=== PATIENT | female | born 1985 | race Caucasian/White ===

== ENCOUNTER 2017-03-05 09:07 | Emergency (ER) | payer OTHER ==
[2017-03-05 09:11] VITALS: BP 141/74; PULSE 85; RESP 20; TEMP 98.5
--- NOTE | 2017-03-05 09:24 | ED ---
Upper Extremity HPI - General Chief Complaint: Extremity Injury, Upper Stated Complaint: Fall Time Seen by Provider: 03/05/17 09:12 Source: patient, RN notes reviewed Mode of arrival: ambulatory Limitations: no limitations - History of Present Illness Initial Comments: 31-year-old female presents emergency Department chief complaint of right hand pain, swelling. She states she had an injury on Thursday went to [facility] on Thursday and had x-rays which showed no acute fracture. She states she had increased swelling and some pain that continues. She states that she's had an Kevin bandage on it and she has not been elevating it. Patient states she's had some paresthesias but they come and go. Denies any weakness or any discoloration. Patient states she did not follow up with her primary care physician or orthopedics at this time. Place: home - Related Data Allergies Allergy/AdvReac Type Severity Reaction Status Date / Time No Known Allergies Allergy Verified 03/05/17 09:11 Review of Systems ROS Statement: Those systems with pertinent positive or pertinent negative responses have been documented in the HPI. ROS Other: All systems not noted in ROS Statement are negative. Past Medical History Past Medical History: No Reported History History of Any Multi-Drug Resistant Organisms: None Reported Past Surgical History: No Surgical Hx Reported Past Psychological History: No Psychological Hx Reported Smoking Status: Never smoker Past Alcohol Use History: None Reported Past Drug Use History: None Reported General Exam Limitations: no limitations General appearance: alert, in no apparent distress Respiratory exam: Present: normal lung sounds bilaterally. Absent: respiratory distress, wheezes, rales, rhonchi, stridor Cardiovascular Exam: Present: regular rate, normal rhythm, normal heart sounds. Absent: systolic murmur, diastolic murmur, rubs, gallop, clicks Extremities exam: Present: other (Right hand there is moderate swelling radial pulses equal bilaterally there is good capillary refill less than 2 seconds patient has full range of motion mild tenderness of the proximal hand) Neurological exam: Present: alert, reflexes normal. Absent: motor sensory deficit Skin exam: Present: warm, dry, intact, normal color. Absent: rash Course Vital Signs 03/05/17 09:09 Temperature 98.5 F Pulse Rate 85 Respiratory 20 Rate Blood Pressure 141/74 O2 Sat by Pulse 99 Oximetry Medical Decision Making - Medical Decision Making 31-year-old female presented for right hand swelling. There is no acute fractures. Patient has a right hand, wrist sprain. Patient has increased swelling that she has been wearing an Kevin wrap tightly on around her wrist. She is advised to take this off, elevate and apply ice. Return parameters discussed. Patient has no evidence of compartment syndrome Disposition Clinical Impression: Swelling of right hand Disposition: HOME SELF-CARE Condition: Stable Instructions: Hand Sprain (ED) Additional Instructions: Please return to the Emergency Department if symptoms worsen or any other concerns. Time of Disposition: 09:43
--- NOTE | 2017-03-05 09:38 | XR ---
EXAMINATION TYPE: XR hand complete RT DATE OF EXAM: 03/05/2017 9:35 AM CLINICAL HISTORY: pain TECHNIQUE: Frontal, lateral and oblique images of the right hand are obtained. COMPARISON: None. FINDINGS: There is no acute fracture/dislocation evident. The joint spaces appear within normal limi ts. Soft tissue swelling overlies the dorsum of the hand. IMPRESSION: There is no acute fracture or dislocation ICD 10 NO FRACTURE, INITIAL EVALUATION
== END 2017-03-05 10:21 | disposition home or self-care (01) ==
LOC: EC 09:07
DX: S63.91XD Sprain of unspecified part of right wrist and hand, subsequent encounter (principal); S63.501D Unspecified sprain of right wrist, subsequent encounter; W19.XXXD Unspecified fall, subsequent encounter; Y92.009 Unspecified place in unspecified non-institutional (private) residence as the place of occurrence of the external cause
CPT/HCPCS: 99283

== ENCOUNTER → 2017-06-25 | Outpatient (CLI) | payer OTHER ==
[2017-06-25 11:07] LABS: Basophils # (A) 0.1 k/uL (0-0.2); Basophils % (A) 1 %; CHCM 31.2; Eosinophils # (A) 0.4 k/uL (0-0.7); Eosinophils % (A) 5 %; HCT 42.9 % (34.0-46.0); HDW 2.49; HGB 13.7 gm/dL (11.4-16.0); Hypochromasia Slight; Luc % (Auto) 2; Lymphocytes # (A) 1.9 k/uL (1.0-4.8); Lymphocytes % (A) 22 %; MCH 26.7 pg (25.0-35.0); MCHC 31.9 g/dL (31.0-37.0); MCV 83.7 fL (80.0-100.0); Mean Platelet Volume 8.5; Monocytes # (A) 0.4 k/uL (0-1.0); Monocytes % (A) 5 %; Neutrophils # (A) 5.7 k/uL (1.3-7.7); Neutrophils % (A) 66 %; RBC 5.13 m/uL (3.80-5.40); RDW 13.8 % (11.5-15.5); WBC 8.6 k/uL (3.8-10.6); WBC (Perox) 9.05
== END | disposition home or self-care (01) ==
LOC: LABPAT 10:46
PROVIDERS: ATTEND Obstetrics & Gynecology
DX: Z01.812 Encounter for preprocedural laboratory examination (principal)
CPT/HCPCS: 36415; 85025

== ENCOUNTER 2017-06-30 07:34 | Day surgery (SDC) | payer OTHER ==
[2017-06-23 12:38] VITALS: BMI 40.4
--- NOTE | 2017-06-26 06:22 | HP ---
HISTORY AND PHYSICAL For surgery on 06/30/2017. HISTORY OF PRESENT ILLNESS: The patient is a 31-year-old, 2, para 2-0-0-2 who presents to discuss tubal ligation. She expresses the desire for no further childbearing and is aware of the chcf and reversible methods but has requested permanent sterilization. PAST MEDICAL HISTORY: Significant only for asthma. PAST SURGICAL HISTORY: None. OBSTETRICAL HISTORY: 2, para 2-0-0-2 with 2 normal vaginal deliveries without complications. Current method of contraception is condoms. GYNECOLOGIC HISTORY: Gynecologic history is unremarkable with no history of any infections to include STDs. FAMILY HISTORY: Family history is noncontributory. SOCIAL HISTORY: The patient is single and a nonsmoker. She reports occasional alcohol and denies any other social concerns. CURRENT MEDICATIONS: None. ALLERGIES: CODEINE causes nausea. REVIEW OF SYSTEMS: Review of systems is confined to the history of present illness. PHYSICAL EXAMINATION: Vital signs are stable and the patient is afebrile. In general, this is a well- developed, moderately obese, white female, in no acute distress. Her heart has a regular rhythm and rate without murmur. Her lungs are clear to auscultation bilaterally in all parrish. Her abdomen is moderately obese, nondistended, has normoactive bowel sounds, is soft, nontender, and without any palpable masses, hepatosplenomegaly, or hernias. Her extremities are without any cyanosis, clubbing, or edema. They are nontender to palpation bilaterally. Bimanual pelvic examination demonstrates normal external genitalia and BUS with normal vaginal mucosa and cervix to palpation. There is no cervical motion tenderness. Uterus is approximately 5 weeks in size, mid plane, mobile, nontender, normal in shape. The adnexa are normal and nontender without mass bilaterally. ASSESSMENT AND PLAN: 1. Undesired fertility: We discussed multiple other alternatives that were both chcf and reversible but the patient has declined these in favor of proceeding with laparoscopic bilateral tubal occlusion using Filshie clips. The risks and complications of the procedure have been thoroughly discussed including risks of bleeding, bleeding requiring transfusion, infection, and injury to local structures, to specifically include the bowel, bladder, and ureters. She also understands the permanent nature of the procedure. She has expressed an understanding all the way around and agrees to proceed. We are scheduled for the procedure as outlined above on the morning of June 30, 2017. MMODL / IJN: [id number] /
[~2017-06-30 07:34] MED LIST: DEXAMETHASONE SOD PHOSPHATE 10 MG/ML 1 ML VIAL IV ONE; HYDROmorphone 1 MG/ML 1 ML SYRINGE IVP PRN; LACTATED RINGERS 1,000 ML IV SCH; LIDOCAINE 1% 20 ML VIAL (10MG/ML) FOR IV START INTRADERMA PRN; ONDANSETRON 4 MG/2 ML VIAL IVP ONE; Pre Op ABX Message 1 EACH MISC MISCELLANE ONE; SCOPOLAMINE 1.5MG/72HR PATCH TRANSDERM ONE
[2017-06-30] MEDS ORDERED: KETOROLAC 30 MG/ML 1 ML VIAL ONE (09:13)
[2017-06-30] MEDS ORDERED: PROPOFOL 10 MG/ML 20 ML VIAL IV ONE (09:13)
[2017-06-30] MEDS ORDERED: LIDOCAINE 1% INJ 10MG/ML (20 ML MDV) ONE (09:13)
[2017-06-30] MEDS ORDERED: fentaNYL (PF) 50 MCG/ML 2 ML AMP ONE (09:13)
[2017-06-30] MEDS ORDERED: NEOSTIGMINE 1 MG/ML 10 ML VIAL ONE (09:13)
[2017-06-30] MEDS ORDERED: HYDROmorphone (PF) 1 MG/ML ONE (09:13)
[2017-06-30] MEDS ORDERED: GLYCOPYRROLATE 0.2 MG/ML 2 ML VIAL ONE (09:13)
[2017-06-30] MEDS ORDERED: MIDAZOLAM 2 MG/2 ML VIAL ONE (09:13)
[2017-06-30] MEDS ORDERED: ROCURONIUM BROMIDE 10 MG/ML 10 ML VIAL IV ONE (09:13)
[2017-06-30] MEDS ORDERED: SUCCINYLCHOLINE CHLORIDE 100 MG/5 ML SYR IV ONE (09:13)
[2017-06-30] MEDS ORDERED: BUPIVACAINE (PF) 0.5% 30 ML VIAL SQ ONE (09:43)
[2017-06-30] MEDS ORDERED: diphenhydrAMINE 50 MG/ML 1 ML VIAL IVP PRN (09:46)
[2017-06-30] MEDS ORDERED: KETOROLAC 30 MG/ML 1 ML VIAL IVP PRN (09:46)
[2017-06-30] MEDS ORDERED: Acetaminophen-Codeine 300-30mg TAB PO PRN ×2 (09:46)
[2017-06-30] MEDS ORDERED: SIMETHICONE 80 MG CHEWABLE PO PRN (09:46)
[2017-06-30] MEDS ORDERED: ONDANSETRON 4 MG/2 ML VIAL IVP PRN (09:46)
[2017-06-30] MEDS ORDERED: IBUPROFEN 600 MG TAB PO PRN (09:46)
[2017-06-30] MEDS ORDERED: METOCLOPRAMIDE 5 MG/ML 2 ML VIAL IVP PRN (09:46)
--- NOTE | 2017-06-30 09:51 | P.OP ---
Date of Procedure: 06/30/17 Preoperative Diagnosis: #1. Multiparity #2. Undesired fertility Postoperative Diagnosis: Same Procedure(s) Performed: #1. Laparoscopic bilateral tubal occlusion with Filshie clips Implants: Anesthesia: LESLEEA Surgeon: Shola Mendez Estimated Blood Loss (ml): 5 IV fluids (ml): 500 Urine output (ml): 50 Pathology: none sent Condition: stable Disposition: PACU Indications for Procedure: Operative Findings: Preoperative pelvic examination demonstrated a roughly 4-5 week midplane mobile normal shaped uterus with normal adnexa bilaterally. Intraoperatively, the bilateral tubes and ovaries were entirely normal as was the uterus. There was no evidence of any pathology throughout the pelvis. The small bowel, large bowel, appendix, liver, diaphragm were also normal to inspection. A Filshie clip was placed firmly across each fallopian tube approximately 2-3 cm from the cornu of the uterus on each side. Description of Procedure: The patient was prepped and draped in usual fashion after general endotracheal anesthesia was administered by the anesthesiologist. A speculum was placed after draining the bladder of approximately 50 mL of clear catherine urine allowing placement of a single-tooth tenaculum and acorn cannula without difficulty. Attention was then turned to the abdomen where a roughly half a centimeter incision was made in the vertical fold of the umbilicus. A 5 mm optical trocar was then used to enter the abdomen and created a pneumoperitoneum without difficulty. Trendelenburg positioning was then utilized in a site was selected approximately 4-5 cm above the pubic sepsis in the midline where an 8 mm incision was made allowing insertion of an 8 mm optical trocar under direct visualization without difficulty. The probe was utilized to sweep the bowel from the pelvis and the findings are as noted above. The probe was replaced the Filshie clip applicator which was utilized to place a clip firmly across each fallopian tube approximately 2-3 cm from the cornu of the uterus on each side. The remainder of the abdomen and pelvis was explored and no pathology noted. The findings are as above. The secondary trocar site was removed under direct visualization with no significant ongoing bleeding. The pneumoperitoneum was evacuated through the 2 incision sites and the primary trocar site removed. The skin incisions were closed with interrupted subcuticular stitches of 4-0 Vicryl followed by Steri-Strips were appropriate. Each incision was injected with approximately 5 mL of half percent Marcaine without epinephrine. Estimated blood loss for the entire case was less than 5 mL. There were no complications. All sponge, instrument, and needle counts were correct. The patient tolerated the procedure well and proceeded to the recovery room in stable condition.
[2017-06-30] MEDS ORDERED: LACTATED RINGERS 1,000 ML IV SCH (10:00)
[2017-06-30 10:12] VITALS: TEMP 96.9
[2017-06-30 10:19] VITALS: RESP 16
[2017-06-30] MEDS ORDERED: Acetaminophen-Codeine 300-30mg TAB PO ONE (11:10)
[2017-06-30 11:32] VITALS: BP 128/74; PULSE 67
== END 2017-06-30 12:48 | disposition home or self-care (01) ==
LOC: OR 07:34
PROVIDERS: ATTEND Obstetrics & Gynecology
DX: Z30.2 Encounter for sterilization (principal); E66.01 Morbid (severe) obesity due to excess calories; Z68.41 Body mass index [BMI] 40.0-44.9, adult; Z88.5 Allergy status to narcotic agent
CPT/HCPCS: 81025; 58671; J2250; J1100; J2710; J2405; J2001; J3010; J1885; J1170; J0330; J2704

== ENCOUNTER 2018-11-06 18:22 | Emergency (ER) | payer OTHER ==
[2018-11-06 18:32] VITALS: BP 139/80; RESP 18; TEMP 98.1
[2018-11-06] MEDS ORDERED: SODIUM CHLORIDE 0.9% 1,000 ML IV STA (18:48)
[2018-11-06] MEDS ORDERED: IPRATROPIUM-ALBUTEROL 3 ML NEB INHALATION STA (19:10)
[2018-11-06 19:36] LABS: Appearance,Urine Cloudy (Clear); Bacteria,Urine Many /hpf; Bilirubin,Urine Negative (Negative); Blood,Urine Moderate (Negative); Color,Urine Light Yellow; Glucose,Urine (UA) Negative (Negative); Ketones,Urine Negative (Negative); Leukocyte Esterase,Urine Trace (Negative); Mucus,Urine Occasional /hpf; Nitrite,Urine Negative (Negative); PH, Urine 5.5 (5.0-8.0); Protein,Urine Negative (Negative); RBC,Urine <1 /hpf (0-5); Specific Gravity,Urine 1.006 (1.001-1.035); Squamous Epithelial Cell,Urine 1 /hpf (0-4); Urobilinogen,Urine <2.0 mg/dL (<2.0)
[2018-11-06 19:38] VITALS: PULSE 88
--- NOTE | 2018-11-06 19:38 | ED ---
General Adult HPI - General Chief complaint: Upper Respiratory Infection Stated complaint: coughing x 1 month, chest congestion, fever Source: patient, RN notes reviewed, old records reviewed Mode of arrival: ambulatory Limitations: no limitations - History of Present Illness Initial comments: 33-year-old female patient with past history of ADD presents to ED with nonproductive cough, congestion for one month. Patient reports that she has some shortness of breath after coughing, none with exertion or at baseline. Patient has not been previously evaluated for this problem. Patient states that today she was feeling sick, had her temperature taken at work which was reportedly 100F. Patient was given ibuprofen, sent home from work. Patient denies other complaints. Patient denies sinus congestion, sore throat, otalgia. Patient denies chest pain. Patient denies abdominal pain, nausea vomiting diarrhea. Systemic: Pt denies fatigue, myalgia, rash. Pt denies weakness, night sweats, weight loss. Neuro: Pt denies headache, visual disturbances, syncope or pre-syncope. HEENT: Pt denies ocular discharge or irritation, otalgia, rhinorrhea, pharyngitis or notable lymphadenopathy. Cardiopulmonary: Pt denies chest pain, heart palpitations, dyspnea on exertion. Abdominal/GI: Pt denies abdominal pain, n/v/d. : Pt denies dysuria, burning w/ urination, frequency/urgency. Denies new onset urinary or bowel incontinence. MSK: Pt denies myalgia, loss of strength or function in extremities. Neuro: Pt denies new onset weakness, paresthesias. - Related Data Previous Rx's Medication Instructions Recorded Albuterol Inhaler [Ventolin Hfa 1 - 2 puff INHALATION Q4-6H PRN #1 11/06/18 Inhaler] inhaler Benzonatate [Tessalon Perles] 100 mg PO TID PRN #20 capsule 11/06/18 methylPREDNISolone Dose Pack 4 mg PO DIRECTED #21 package 11/06/18 [Medrol Dose Pack] Allergies Allergy/AdvReac Type Severity Reaction Status Date / Time codeine Allergy Abdominal Verified 11/06/18 18:32 Pain Review of Systems ROS Statement: Those systems with pertinent positive or pertinent negative responses have been documented in the HPI. ROS Other: All systems not noted in ROS Statement are negative. Past Medical History Past Medical History: No Reported History History of Any Multi-Drug Resistant Organisms: None Reported Past Surgical History: No Surgical Hx Reported Additional Past Surgical History / Comment(s): ONLY HAD EPIDURAL Past Anesthesia/Blood Transfusion Reactions: No Reported Reaction, Family History of Problems w/ Anesthesia Additional Past Anesthesia/Blood Transfusion Reaction / Comment(s): SON HAD RESPIRATORY DEPRESSION W/ VERSED. Past Psychological History: No Psychological Hx Reported Smoking Status: Current every day smoker Past Alcohol Use History: Rare Past Drug Use History: Marijuana - Past Family History Mother Family Medical History: Cancer General Exam - General Exam Comments Initial Comments: Constitutional: NAD, AOX3, Pt has pleasant affect. HEENT: NC/AT, trachea midline, neck supple, no lymphadenopathy. Posterior pharynx non erythematous, without exudates. External ears appear normal, without discharge. Mucous membranes moist. Eyes PERRLA, EOM intact. There is no scleral icterus. No pallor noted. Cardiopulmonary: RRR, no murmurs, rubs or gallops, no JVD noted. Mild wheezing noted in left upper lobe in posterior field, all other parrish CTAB. Improved after albuterol treatment. No peripheral edema. Abdominal exam: Abdomen soft and non-distended. Abdomen non-tender to palpation in all 4 quadrants. Bowel sounds active in LLQ. No hepatosplenomegaly. No ecchymosis Neuro: CN II-XII grossly intact. No nuchal rigidity. MSK: No posterior calf tenderness bilaterally, homans sign negative bilaterally. Posterior tibialis and radial pulse +2 bilaterally. Sensation intact in upper and lower extremities. Full active ROM in upper and lower extremities, 5/5 stregnth. Limitations: no limitations Course Vital Signs 11/06/18 11/06/18 11/06/18 18:29 19:28 19:38 Temperature 98.1 F Pulse Rate 96 86 88 Respiratory 18 Rate Blood Pressure 139/80 O2 Sat by Pulse 98 Oximetry Medical Decision Making - Medical Decision Making 33-year-old female patient with past history of ADD, tubal ligation presents to ED with nonproductive cough, congestion for one month. Patient reports that she has some shortness of breath after coughing, none with exertion or at baseline. Patient has not been previously evaluated for this problem. Patient states that today she was feeling sick, had her temperature taken at work which was reportedly 100F. Patient was given ibuprofen, sent home from work. Patient denies other complaints. Patient vital signs stable, afebrile, PERC negative. Physical exam displayed: Mild wheezing noted in left upper lobe in posterior field, all other parrish CTAB. Improved after albuterol treatment. Laboratory investigations revealed negative influenza. UA not impressive, will culture. HCG negative. Chest x-ray displayed no acute Process. Patient Diagnosed with Bronchitis. Patient Administered duoneb Breathing Treatment in ED, subjectively felt as if she was breathing better. Patient to be discharged with Medrol Dosepak, albuterol inhaler, Tessalon Perles. Patient follow with PCP tomorrow. Patient to return to ED if new s/sx symptoms develop, if condition worsens in anyway. Case discussed in depth with Dr. Lees. - Lab Data Lab Results 11/06/18 11/06/18 11/06/18 Range/Units 19:10 19:10 19:10 Urine Color Light Yellow Urine Appearance Cloudy H (Clear) Urine pH 5.5 (5.0-8.0) Ur Specific Peterson 1.006 (1.001-1.035) Urine Protein Negative (Negative) Urine Glucose (UA) Negative (Negative) Urine Ketones Negative (Negative) Urine Blood Moderate H (Negative) Urine Nitrite Negative (Negative) Urine Bilirubin Negative (Negative) Urine Urobilinogen <2.0 (<2.0) mg/dL Ur Leukocyte Esterase Trace H (Negative) Urine RBC <1 (0-5) /hpf Urine WBC 3 (0-5) /hpf Ur Squamous Epith Cells 1 (0-4) /hpf Urine Bacteria Many H (None) /hpf Urine Mucus Occasional H (None) /hpf Urine HCG, Qual Not Detected (Not Detectd) Influenza Type A RNA Not Detected (Not Detectd) Influenza Type B (PCR) Not Detected (Not Detectd) Disposition Clinical Impression: Bronchitis Disposition: HOME SELF-CARE Condition: Good Instructions: Acute Bronchitis (ED) Prescriptions: Albuterol Inhaler [Ventolin Hfa Inhaler] 1 - 2 puff INHALATION Q4-6H PRN #1 inhaler PRN Reason: Cough Benzonatate [Tessalon Perles] 100 mg PO TID PRN #20 capsule PRN Reason: Cough methylPREDNISolone Dose Pack [Medrol Dose Pack] 4 mg PO DIRECTED #21 package Is patient prescribed a controlled substance at d/c from ED?: No Referrals: Dagoberto Hodgson Jr, DO [Primary Care Provider] - 1-2 days Time of Disposition: 20:13
--- NOTE | 2018-11-06 19:43 | XR ---
EXAMINATION TYPE: XR chest 2V DATE OF EXAM: 11/06/2018 COMPARISON: NONE HISTORY: Fever, cough and congestion TECHNIQUE: Frontal and lateral views of the chest are obtained. FINDINGS: Patient is rotated. There is no focal air space opacity, pleural effusion, or pneumothorax seen. The cardiac silhouette size is within normal limits. The osseous structures are intact. IMPRESSION: No acute cardiopulmonary process.
== END 2018-11-06 20:21 | disposition home or self-care (01) ==
LOC: EC 18:22
DX: J40 Bronchitis, not specified as acute or chronic (principal); F17.200 Nicotine dependence, unspecified, uncomplicated; Z88.5 Allergy status to narcotic agent
CPT/HCPCS: 71046; 81001; 81025; 87502; 94640; 96360; 99284

== ENCOUNTER 2019-01-11 13:00 | Emergency (ER) | payer OTHER ==
[2019-01-11 13:26] VITALS: TEMP 98.5
--- NOTE | 2019-01-11 14:10 | XR ---
EXAMINATION TYPE: XR chest 2V DATE OF EXAM: 01/11/2019 COMPARISON: Prior chest x-ray 11/06/2018 HISTORY: Pain, cough TECHNIQUE: Frontal and lateral views of the chest are obtained. FINDINGS: Patient is rotated. There is no focal air space opacity, pleural effusion, or pneumothorax seen. The cardiac silhouette size is within normal limits. The osseous structures are intact. IMPRESSION: No acute cardiopulmonary process.
--- NOTE | 2019-01-11 14:49 | ED ---
URI HPI - General Chief Complaint: Upper Respiratory Infection Stated Complaint: Poss pneumonia Time Seen by Provider: 01/11/19 13:44 Source: patient Mode of arrival: ambulatory Limitations: no limitations - History of Present Illness Initial Comments: 33-year-old female who denies past medical history presents today for chief complaint of cough and sputum production. Patient states past week she has had increasing cough and sputum production. Patient isn't every day smoker. Patient states her partner was recently diagnosed with pneumonia and she was concerned she may have contracted the illness. Patient states she felt as though she had a fever yesterday. Patient admits to chills. Patient denies any chest pain, dyspnea exertion, nausea, vomiting, abdominal pain, diarrhea, constipation, , recent travel, IV drug use, headache, visual changes. Remaining review of systems negative. Upon arrival patient is well-appearing vital signs within normal limits. Patient afebrile. Patient denies taking ibuprofen or Tylenol prior to arrival. - Related Data Previous Rx's Medication Instructions Recorded Albuterol Inhaler [Ventolin Hfa 1 - 2 puff INHALATION RT-Q6H PRN 7 01/11/19 Inhaler] Days #1 inhaler Azithromycin [Zithromax Z-pack] 0 mg PO DIRECTED #6 tab 01/11/19 predniSONE 20 mg PO DAILY 5 Days #5 tab 01/11/19 Allergies Allergy/AdvReac Type Severity Reaction Status Date / Time codeine AdvReac Abdominal Verified 01/11/19 14:18 Pain Pepper AdvReac Swelling Verified 01/11/19 14:18 Review of Systems ROS Statement: Those systems with pertinent positive or pertinent negative responses have been documented in the HPI. ROS Other: All systems not noted in ROS Statement are negative. Past Medical History Past Medical History: No Reported History History of Any Multi-Drug Resistant Organisms: None Reported Past Surgical History: No Surgical Hx Reported, Tubal Ligation Additional Past Surgical History / Comment(s): ONLY HAD EPIDURAL Past Anesthesia/Blood Transfusion Reactions: No Reported Reaction, Family History of Problems w/ Anesthesia Additional Past Anesthesia/Blood Transfusion Reaction / Comment(s): SON HAD RESPIRATORY DEPRESSION W/ VERSED. Past Psychological History: No Psychological Hx Reported Smoking Status: Current every day smoker Past Alcohol Use History: Rare Past Drug Use History: Marijuana - Past Family History Mother Family Medical History: Cancer General Exam - General Exam Comments Initial Comments: General: The patient is awake and alert, in no distress, and does not appear acutely ill. Eye: +3 mm pupils are equal, round and reactive to light, extra-ocular movements are intact. No nystagmus. There is normal conjunctiva bilaterally. No signs of icterus. No photophobia Ears, nose, mouth and throat: There are moist mucous membranes and no oral lesions. Oropharynx was not erythematous there is no tonsillar enlargement exudates or lesions. Uvula midline. Tympanic membranes are not erythematous or is no effusions bulging or retraction. No tenderness to palpation of the mastoid. No anterior cervical lymphadenopathy. Rhinorrhea, clear and bilateral nares. No tripoding, no drooling. Neck: The neck is supple, there is no tenderness or JVD. No nuchal rigidity negative Brudzinski and Kernig Cardiovascular: There is a regular rate and rhythm. No murmur, rub or gallop is appreciated. Respiratory: Lungs are clear to auscultation, respirations are non-labored, breath sounds are equal. No wheezes, stridor, rales, or rhonchi. No retractions or abdominal breathing. Gastrointestinal: Soft, non-distended, non-tender abdomen without masses or organomegaly noted. There is no rebound or guarding present. Bowel sounds are unremarkable. Musculoskeletal: Normal ROM, no tenderness. Strength 5/5. Sensation intact. Radial pulses equal bilaterally 2+. Neurological: A&O x 3. CN II-XII intact, There are no obvious motor or sensory deficits. Coordination appears grossly intact. Speech appears normal, no muffling. Skin: Skin is warm and dry and no rashes or lesions are noted. No extremity edema Psychiatric: Cooperative. Limitations: no limitations Course Vital Signs 01/11/19 01/11/19 13:23 15:16 Temperature 98.5 F Pulse Rate 78 57 L Respiratory 18 16 Rate Blood Pressure 131/76 120/76 O2 Sat by Pulse 96 97 Oximetry Medical Decision Making - Medical Decision Making Well-appearing 33-year-old female presenting with cough, congestion and sputum production. Influenza testing negative. Patient appears well nontoxic, afebrile upon arrival. Chest x-ray revealed no findings consistent with pneumonia. No wheezes or rhonchi on examination. Dry cough audible. Patient has every day smoker. Patient be treated for bronchitis with steroids, azithromycin as well as albuterol inhaler as needed. Patient is agreeable to discharge. I did recommend follow-up outpatient with primary care provider. Patient is agreeable with plan. Patient is aware of all return parameters which were discussed at length. Patient denied questions upon discharge. Patient discharged appearing well vital signs within acceptable limits. This was discussed with attending provider Dr. Lock prior to patient's discharge. - Lab Data Lab Results 01/11/19 Range/Units 14:08 Influenza Type A RNA Not Detected (Not Detectd) Influenza Type B (PCR) Not Detected (Not Detectd) Disposition Clinical Impression: Upper respiratory infection, Bronchitis Disposition: HOME SELF-CARE Condition: Good Instructions (If sedation given, give patient instructions): Upper Respiratory Infection (ED), Acute Bronchitis (ED) Additional Instructions: Please use medication as discussed. Please follow-up with family doctor in the next 2 days of symptoms have not improved. Please return to emergency room if the symptoms increase or worsen or for any other concerns. Prescriptions: predniSONE 20 mg PO DAILY 5 Days #5 tab Albuterol Inhaler [Ventolin Hfa Inhaler] 1 - 2 puff INHALATION RT-Q6H PRN 7 Days #1 inhaler PRN Reason: Wheezing Azithromycin [Zithromax Z-pack] 0 mg PO DIRECTED #6 tab Is patient prescribed a controlled substance at d/c from ED?: No Referrals: Dagoberto Hodgson Jr, DO [Primary Care Provider] - 1-2 days Time of Disposition: 14:49
[2019-01-11 15:17] VITALS: BP 120/76; PULSE 57; RESP 16
== END 2019-01-11 15:18 | disposition home or self-care (01) ==
LOC: EC 13:00
DX: J40 Bronchitis, not specified as acute or chronic (principal); J06.9 Acute upper respiratory infection, unspecified; F17.200 Nicotine dependence, unspecified, uncomplicated; Z88.5 Allergy status to narcotic agent; Z91.018 Allergy to other foods
CPT/HCPCS: 71046; 87502; 99283

== ENCOUNTER 2019-02-22 20:54 | Emergency (ER) | payer OTHER ==
--- NOTE | 2019-02-22 21:58 | XR ---
EXAMINATION: XR chest 2V DATE AND TIME: 02/22/2019 9:40 PM CLINICAL INDICATION: PHH; fever, cough TECHNIQUE: Departmental protocol COMPARISON: 01/11/2019 FINDINGS: The lungs are clear. The pleural spaces are negative. The cardiac silhouette is not enlarged. The remainder of the mediastinal silhouette is unremarkable. The skeletal structures and soft tissues are negative for acute findings. IMPRESSION: NO ACUTE PROCESS.
[2019-02-22] MEDS ORDERED: predniSONE 20 MG TAB PO STA (22:11)
--- NOTE | 2019-02-22 22:17 | ED ---
URI HPI - General Chief Complaint: Upper Respiratory Infection Stated Complaint: Cough, fever, chest pain Time Seen by Provider: 02/22/19 21:19 Source: patient Mode of arrival: ambulatory Limitations: no limitations - History of Present Illness Initial Comments: This patient is a 33-year-old woman who presents with complaints of cough, congestion, and fever. She states she was in her usual state of health until just under week ago when she began developing upper respiratory symptoms included some rhinorrhea and congestion. She states that after a couple of days that she began having a cough that was for the most part nonproductive. She started having fevers yesterday. Patient denies significant dyspnea. Patient does smoke. MD Complaint: fever, cough, nasal congestion -: days(s) Consistency: constant Improves With: nothing Worsens With: nothing Context: sick contacts Associated Symptoms: fever, rhinorrhea, nasal congestion, cough - Related Data Previous Rx's Medication Instructions Recorded Albuterol Inhaler [Ventolin Hfa 1 - 2 puff INHALATION Q6HR PRN #1 02/22/19 Inhaler] inhaler Promethazine 6.25MG/5Ml [Phenergan 5 ml PO Q4HR PRN #120 ml 02/22/19 Syrup] predniSONE 60 mg PO DAILY #30 tab 02/22/19 Allergies Allergy/AdvReac Type Severity Reaction Status Date / Time codeine AdvReac Abdominal Verified 02/22/19 22:10 Pain Pepper AdvReac Swelling Verified 02/22/19 22:10 Review of Systems ROS Statement: Those systems with pertinent positive or pertinent negative responses have been documented in the HPI. ROS Other: All systems not noted in ROS Statement are negative. Constitutional: Reports: fever. Denies: chills ENT: Reports: congestion Respiratory: Reports: cough. Denies: dyspnea Cardiovascular: Denies: chest pain, palpitations Gastrointestinal: Denies: abdominal pain, nausea, vomiting, diarrhea Genitourinary: Denies: dysuria, hematuria Musculoskeletal: Denies: back pain Skin: Denies: rash Neurological: Denies: headache, weakness, numbness Past Medical History Past Medical History: No Reported History History of Any Multi-Drug Resistant Organisms: None Reported Past Surgical History: No Surgical Hx Reported, Tubal Ligation Additional Past Surgical History / Comment(s): ONLY HAD EPIDURAL Past Anesthesia/Blood Transfusion Reactions: No Reported Reaction, Family History of Problems w/ Anesthesia Additional Past Anesthesia/Blood Transfusion Reaction / Comment(s): SON HAD RESPIRATORY DEPRESSION W/ VERSED. Past Psychological History: No Psychological Hx Reported Smoking Status: Current every day smoker Past Alcohol Use History: Rare Past Drug Use History: Marijuana - Past Family History Mother Family Medical History: Cancer General Exam Limitations: no limitations General appearance: alert, in no apparent distress Head exam: Present: atraumatic, normocephalic Eye exam: Present: normal appearance Neck exam: Present: normal inspection Respiratory exam: Present: wheezes (Trace expiratory wheeze), other (Occasional nonproductive cough). Absent: normal lung sounds bilaterally, respiratory distress, rales, rhonchi, stridor, accessory muscle use, decreased breath sounds Cardiovascular Exam: Present: regular rate, normal rhythm, normal heart sounds. Absent: systolic murmur, diastolic murmur, rubs, gallop GI/Abdominal exam: Present: soft. Absent: distended, tenderness, guarding, rebound, rigid, mass Extremities exam: Present: normal inspection, normal capillary refill. Absent: pedal edema, calf tenderness Back exam: Present: normal inspection. Absent: CVA tenderness (R), CVA tenderness (L) Neurological exam: Present: alert Skin exam: Present: warm, dry, intact, normal color. Absent: rash Course Vital Signs 02/22/19 21:04 Temperature 98.3 F Pulse Rate 80 Respiratory 18 Rate Blood Pressure 116/79 O2 Sat by Pulse 98 Oximetry Disposition Clinical Impression: Bronchitis Disposition: HOME SELF-CARE Condition: Good Instructions (If sedation given, give patient instructions): Acute Bronchitis (ED) Prescriptions: Promethazine 6.25MG/5Ml [Phenergan Syrup] 5 ml PO Q4HR PRN #120 ml PRN Reason: Cough predniSONE 60 mg PO DAILY #30 tab Albuterol Inhaler [Ventolin Hfa Inhaler] 1 - 2 puff INHALATION Q6HR PRN #1 inhaler PRN Reason: Wheezing Is patient prescribed a controlled substance at d/c from ED?: No Referrals: Dagoberto Hodgson Jr, DO [Primary Care Provider] - 1-2 days
[2019-02-22 22:23] VITALS: BP 126/75; PULSE 84; RESP 16; TEMP 98.6
== END 2019-02-22 22:39 | disposition home or self-care (01) ==
LOC: EC 20:54
DX: J40 Bronchitis, not specified as acute or chronic (principal); F17.200 Nicotine dependence, unspecified, uncomplicated; Z88.5 Allergy status to narcotic agent; Z91.018 Allergy to other foods
CPT/HCPCS: 71046; 99284; J7512

== ENCOUNTER 2019-07-13 06:51 | Emergency (ER) | payer OTHER ==
[2019-07-13 06:55] VITALS: BP 132/72; RESP 18
[2019-07-13] MEDS ORDERED: IPRATROPIUM-ALBUTEROL 3 ML NEB INHALATION STA (07:24)
[2019-07-13] MEDS ORDERED: predniSONE 50 MG TAB PO STA (07:25)
--- NOTE | 2019-07-13 07:27 | ED ---
URI HPI - General Chief Complaint: Upper Respiratory Infection Stated Complaint: URI, fever Time Seen by Provider: 07/13/19 07:01 Source: patient, RN notes reviewed, old records reviewed Mode of arrival: ambulatory Limitations: no limitations - History of Present Illness Initial Comments: Patient is a 33-year-old female presents emergency department today she went of one week of cough congestion and body aches and started to have fevers and past 24 hours. She reports that her son was diagnosed with the flu last week. Patient has history of asthma worse when she is sick. She is also had smoking. Patient states that she had a nonproductive cough. - Related Data Home Medications Medication Instructions Recorded Confirmed Ibuprofen [Motrin Ib] 400 mg PO Q6H PRN 07/13/19 07/13/19 Previous Rx's Medication Instructions Recorded Albuterol Inhaler [Ventolin Hfa 1 - 2 puff INHALATION RT-Q6H PRN 07/13/19 Inhaler] #1 inhaler Azithromycin [Zithromax Z-pack] 250 mg PO DIRECTED #6 tab 07/13/19 Oseltamivir [Tamiflu] 75 mg PO Q12HR #10 cap 07/13/19 guaiFENesin-DM 100-10MG/5ML 10 ml PO TID #120 ml 07/13/19 [Robitussin DM] predniSONE 10 mg PO DAILY #15 tab 07/13/19 Allergies Allergy/AdvReac Type Severity Reaction Status Date / Time codeine AdvReac Abdominal Verified 07/13/19 08:01 Pain Pepper AdvReac Swelling Verified 07/13/19 08:01 Review of Systems ROS Statement: Those systems with pertinent positive or pertinent negative responses have been documented in the HPI. ROS Other: All systems not noted in ROS Statement are negative. Past Medical History Past Medical History: No Reported History History of Any Multi-Drug Resistant Organisms: None Reported Past Surgical History: No Surgical Hx Reported, Tubal Ligation Additional Past Surgical History / Comment(s): ONLY HAD EPIDURAL Past Anesthesia/Blood Transfusion Reactions: No Reported Reaction, Family History of Problems w/ Anesthesia Additional Past Anesthesia/Blood Transfusion Reaction / Comment(s): SON HAD RESPIRATORY DEPRESSION W/ VERSED. Past Psychological History: No Psychological Hx Reported Smoking Status: Current every day smoker Past Alcohol Use History: Rare Past Drug Use History: Marijuana - Past Family History Mother Family Medical History: Cancer General Exam - General Exam Comments Initial Comments: This is a 33-year-old female. Alert and oriented 3. Patient appears in no significant distress. Limitations: no limitations General appearance: alert, in no apparent distress Head exam: Present: atraumatic, normocephalic, normal inspection Eye exam: Present: normal appearance, PERRL, EOMI. Absent: scleral icterus, conjunctival injection, periorbital swelling ENT exam: Present: normal exam, mucous membranes moist Neck exam: Present: normal inspection. Absent: tenderness, meningismus, lymphadenopathy Respiratory exam: Present: wheezes (Bilateral wheezing.). Absent: normal lung sounds bilaterally, respiratory distress, rales, rhonchi, stridor Cardiovascular Exam: Present: regular rate, normal rhythm, normal heart sounds. Absent: systolic murmur, diastolic murmur, rubs, gallop, clicks GI/Abdominal exam: Present: soft, normal bowel sounds. Absent: distended, tenderness, guarding, rebound, rigid Extremities exam: Present: normal inspection, full ROM, normal capillary refill. Absent: tenderness, pedal edema, joint swelling, calf tenderness Back exam: Present: normal inspection Neurological exam: Present: alert, oriented X3, CN II-XII intact Psychiatric exam: Present: normal affect, normal mood Skin exam: Present: warm, dry, intact, normal color. Absent: rash Course Vital Signs 07/13/19 07/13/19 07/13/19 06:52 07:35 07:45 Temperature 97.9 F Pulse Rate 82 88 84 Respiratory 18 Rate Blood Pressure 132/72 O2 Sat by Pulse 99 Oximetry - Reevaluation(s) Reevaluation #1: 07/13/19 08:32 Patient was reevaluated has resolution of her wheezing. Medical Decision Making - Medical Decision Making This patient's a 33-year-old female presented to the emergency department today for reevaluation for cough congestion. History of sick exposure with her son having flu. Her flu test is negative. She has wheezing on exam. Chest x-ray shows evidence of bronchitis instructed very disease. She is given by mouth prednisone and a double DuoNeb. On reevaluation her wheezing a stop. At this time Patient is a 4 and will put the Patient on steroids, refill her albuterol inhaler, and discharge her with a prescription for Robitussin for cough. Patient does answer return parameters were discussed. - Lab Data Lab Results 07/13/19 Range/Units 07:46 Influenza Type A RNA Not Detected (Not Detectd) Influenza Type B (PCR) Not Detected (Not Detectd) Disposition Clinical Impression: Bronchitis Disposition: HOME SELF-CARE Condition: Good Instructions (If sedation given, give patient instructions): Acute Bronchitis (ED) Additional Instructions: Please use medication as discussed. Please follow up with family doctor if symptoms have not improved over the next two days. Please return to the emergency room if your symptoms increase or worsen or for any other concerns. Prescriptions: predniSONE 10 mg PO DAILY #15 tab guaiFENesin-DM 100-10MG/5ML [Robitussin DM] 10 ml PO TID #120 ml Oseltamivir [Tamiflu] 75 mg PO Q12HR #10 cap Albuterol Inhaler [Ventolin Hfa Inhaler] 1 - 2 puff INHALATION RT-Q6H PRN #1 inhaler PRN Reason: Shortness Of Breath Azithromycin [Zithromax Z-pack] 250 mg PO DIRECTED #6 tab Is patient prescribed a controlled substance at d/c from ED?: No Referrals: Dagoberto Hodgson Jr, [Primary Care Provider] - 1-2 days Time of Disposition: 08:33
--- NOTE | 2019-07-13 08:12 | XR ---
EXAMINATION TYPE: XR chest 2V DATE OF EXAM: 07/13/2019 COMPARISON: 02/22/2019 HISTORY: Fever and cough TECHNIQUE: Frontal and lateral views of the chest are obtained. FINDINGS: There is no focal air space opacity, pleural effusion, or pneumothorax seen. The cardiac silhouette size is within normal limits. There is some bronchial wall thickening. The osseous struct ures are intact. IMPRESSION: Correlate for bronchitis, reactive airways disease
[2019-07-13 09:07] VITALS: PULSE 77; TEMP 98.2
== END 2019-07-13 09:04 | disposition home or self-care (01) ==
LOC: EC 06:51
DX: J40 Bronchitis, not specified as acute or chronic (principal); F17.200 Nicotine dependence, unspecified, uncomplicated; Z88.5 Allergy status to narcotic agent; Z91.018 Allergy to other foods
CPT/HCPCS: 94640; 87502; 71046; 99284; J7512

== ENCOUNTER 2019-07-18 22:44 | Emergency (ER) | payer OTHER ==
[2019-07-18] MEDS ORDERED: IPRATROPIUM-ALBUTEROL 3 ML NEB INHALATION STA (23:32)
[2019-07-19 00:01] VITALS: PULSE 76
--- NOTE | 2019-07-19 00:21 | XR ---
EXAMINATION TYPE: XR chest 2V DATE OF EXAM: 07/19/2019 COMPARISON: 07/13/2019 HISTORY: Short of breath. Cough TECHNIQUE: Frontal and lateral views of the chest are obtained. FINDINGS: Heart and mediastinum are normal. Lungs are clear. Diaphragm is normal. Bony thorax appear s normal. IMPRESSION: Normal chest. No change.
--- NOTE | 2019-07-19 00:24 | ED ---
SOB HPI - General Chief Complaint: Shortness of Breath Stated Complaint: Diff Breathing Time Seen by Provider: 07/18/19 23:28 Source: patient, RN notes reviewed Mode of arrival: ambulatory Limitations: no limitations - History of Present Illness Initial Comments: 33-year-old female presents emergency Department with chief complaint of cough congestion shortness breath. Patient was treated recently for acute bronchitis. Patient states she took the antibiotics but did not have relief. She has been using her inhaler which does give her relief. Patient states that she is a daily smoker. Patient was given one dose of steroids no additional steroids after discharge. Patient denies any fevers chills, sore throat, headache or dizziness. Denies any nausea vomiting diarrhea constipation no pleuritic chest pain. - Related Data Home Medications Medication Instructions Recorded Confirmed Ibuprofen [Motrin Ib] 400 mg PO Q6H PRN 07/13/19 07/13/19 Previous Rx's Medication Instructions Recorded Albuterol Inhaler [Ventolin Hfa 1 - 2 puff INHALATION RT-Q6H PRN 07/13/19 Inhaler] #1 inhaler Azithromycin [Zithromax Z-pack] 250 mg PO DIRECTED #6 tab 07/13/19 Oseltamivir [Tamiflu] 75 mg PO Q12HR #10 cap 07/13/19 guaiFENesin-DM 100-10MG/5ML 10 ml PO TID #120 ml 07/13/19 [Robitussin DM] predniSONE 10 mg PO DAILY #15 tab 07/13/19 predniSONE 50 mg PO DAILY #5 tab 07/19/19 Allergies Allergy/AdvReac Type Severity Reaction Status Date / Time codeine AdvReac Abdominal Verified 07/18/19 22:55 Pain Pepper AdvReac Swelling Verified 07/18/19 22:55 Review of Systems ROS Statement: Those systems with pertinent positive or pertinent negative responses have been documented in the HPI. ROS Other: All systems not noted in ROS Statement are negative. Past Medical History Past Medical History: Asthma History of Any Multi-Drug Resistant Organisms: None Reported Past Surgical History: Tubal Ligation Additional Past Surgical History / Comment(s): ONLY HAD EPIDURAL Past Anesthesia/Blood Transfusion Reactions: No Reported Reaction, Family History of Problems w/ Anesthesia Additional Past Anesthesia/Blood Transfusion Reaction / Comment(s): SON HAD RESPIRATORY DEPRESSION W/ VERSED. Past Psychological History: No Psychological Hx Reported Smoking Status: Current every day smoker Past Alcohol Use History: Rare Past Drug Use History: Marijuana - Past Family History Mother Family Medical History: Cancer General Exam Limitations: no limitations General appearance: alert, in no apparent distress Head exam: Present: atraumatic, normocephalic, normal inspection Eye exam: Present: normal appearance, PERRL, EOMI. Absent: scleral icterus, conjunctival injection, periorbital swelling ENT exam: Present: normal exam, normal oropharynx, mucous membranes moist Neck exam: Present: normal inspection, full ROM. Absent: tenderness, meningismus, lymphadenopathy Respiratory exam: Present: respiratory distress (Minimal), wheezes, decreased breath sounds. Absent: normal lung sounds bilaterally, rales, rhonchi, stridor Cardiovascular Exam: Present: regular rate, normal rhythm, normal heart sounds. Absent: systolic murmur, diastolic murmur, rubs, gallop, clicks GI/Abdominal exam: Present: soft, normal bowel sounds. Absent: distended, tenderness, guarding, rebound, rigid Neurological exam: Present: alert, oriented X3, CN II-XII intact Course Vital Signs 07/18/19 07/18/19 07/18/19 22:53 23:36 23:43 Temperature 97.8 F Pulse Rate 85 72 Respiratory 24 22 Rate Blood Pressure 110/71 O2 Sat by Pulse 95 Oximetry 07/19/19 00:00 Temperature Pulse Rate 76 Respiratory Rate Blood Pressure O2 Sat by Pulse Oximetry - Reevaluation(s) Reevaluation #1: 07/19/19 00:22 I counseled the patient for smoking cessation for greater than 3 minutes Medical Decision Making - Medical Decision Making 33-year-old female presented for dyspnea, URI symptoms, asthma. Patient is given 2 DuoNeb treatments which improved her symptoms. Patient was given steroids discharged with steroids. She is advised to stop smoking. Patient will follow-up PCP and return for any worsening symptoms. Disposition Clinical Impression: Asthmatic bronchitis Disposition: HOME SELF-CARE Condition: Stable Instructions (If sedation given, give patient instructions): Acute Bronchitis (ED) Additional Instructions: Please return to the Emergency Department if symptoms worsen or any other concerns. Prescriptions: predniSONE 50 mg PO DAILY #5 tab Is patient prescribed a controlled substance at d/c from ED?: No Referrals: Dagoberto Hodgson Jr, [Primary Care Provider] - 1-2 days Time of Disposition: 00:24
[2019-07-19] MEDS ORDERED: predniSONE 50 MG TAB PO STA (00:25)
[2019-07-19 00:35] VITALS: BP 122/76; RESP 20; TEMP 98.2
== END 2019-07-19 00:34 | disposition home or self-care (01) ==
LOC: EC 22:44
DX: J45.909 Unspecified asthma, uncomplicated (principal); Z71.6 Tobacco abuse counseling; F17.200 Nicotine dependence, unspecified, uncomplicated; Z88.5 Allergy status to narcotic agent; Z91.018 Allergy to other foods
CPT/HCPCS: 94640; 71046; 99285; 99406; J7512